=== PATIENT | male | born 1955 | race Caucasian/White ===

== ENCOUNTER 2016-05-12 13:02 | Inpatient (IN) | payer OTHER ==
[2007-03-11] MEDS: Dextrose 5%/0.45% NS 1,000 ML IV SCH (17:00)
[2016-05-09 12:06] VITALS: BMI 30.9
[2016-05-12] MEDS ORDERED: Propofol 10 mg/ml Inj (20 ML) ONE (14:52)
[2016-05-12] MEDS: cefTRIAXone IV 1 gm in Dextros 50 ML IVPB ONE ×2 (15:00→15:20)
[2016-05-12] MEDS: HYDROmorphone 0.5 mg/0.5 ml ISec IVP PRN ×4 (15:53→19:07)
[2016-05-12] MEDS ORDERED: Oxycodone/Acetaminophen 5/325 mg Tab PO PRN (16:24)
[2016-05-12] MEDS: Dextrose 5%/0.45% NS 1,000 ML IV SCH ×2 (16:30→17:00)
[2016-05-12] MEDS ORDERED: Gentamicin 80 mg in 0.9% NS 100 ML IVPB ONE (16:33)
[2016-05-12] MEDS: Gentamicin 80 mg in 0.9% NS 100 ML IVPB SCH (16:35)
[2016-05-12] MEDS ORDERED: HYDROmorphone 0.5 mg/0.5 ml ISec ONE (19:10)
[2016-05-12] MEDS: (Lantus) Insulin Glargine, Recombinant SC SCH (22:10)
[2016-05-13] MEDS: Multiple Vitamins Tab PO SCH (09:27)
[2016-05-13] MEDS: GlipiZIDE 10 mg SR Tab PO SCH ×2 (09:27→18:24)
[2016-05-13] MEDS: Dextrose 5%/0.45% NS 1,000 ML IV SCH ×2 (09:37→12:30)
[2016-05-13] MEDS ORDERED: METFORMIN HCL PO SCH (10:00)
[2016-05-13] MEDS ORDERED: Pneumococcal 23-Valent Vaccine IM ONE (10:00)
[2016-05-13] MEDS ORDERED: SAXAGLIPTIN HCL PO SCH (10:00)
[2016-05-13] MEDS: Lidocaine 2% Jelly (5 ml) TOP SCH ×3 (10:29→18:24)
[2016-05-13 15:35] VITALS: RESP 20
[2016-05-13] MEDS: Gentamicin 80 mg in 0.9% NS 100 ML IVPB SCH (16:43)
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
[2016-05-13] MEDS: (Lantus) Insulin Glargine, Recombinant SC SCH (21:58)
[2016-05-13] MEDS ORDERED: Magnesium Hydroxide Susp 30 ml UD PO ONE (22:12)
[2016-05-14] MEDS ORDERED: Magnesium Hydroxide Susp 30 ml UD PO ONE (07:53)
[2016-05-14] MEDS: Multiple Vitamins Tab PO SCH (09:10)
[2016-05-14] MEDS: GlipiZIDE 10 mg SR Tab PO SCH ×2 (09:10→17:16)
[2016-05-14] MEDS: Lidocaine 2% Jelly (5 ml) TOP SCH ×3 (10:00→18:30)
[2016-05-14] MEDS ORDERED: Magnesium Hydroxide Susp 30 ml UD PO STA (10:18)
[2016-05-14] MEDS: Dextrose 5%/0.45% NS 1,000 ML IV SCH (10:32)
[2016-05-14] MEDS: Gentamicin 80 mg in 0.9% NS 100 ML IVPB SCH (15:35)
[2016-05-14] MEDS: (Lantus) Insulin Glargine, Recombinant SC SCH (21:46)
[2016-05-15] MEDS: GlipiZIDE 10 mg SR Tab PO SCH ×2 (09:19→17:02)
[2016-05-15] MEDS: Multiple Vitamins Tab PO SCH (09:19)
[2016-05-15] MEDS: Lidocaine 2% Jelly (5 ml) TOP SCH ×3 (10:00→17:12)
[2016-05-15 15:54] VITALS: BP 114/73; PULSE 82; TEMP 98.2; O2SAT 97
[2016-05-15] MEDS: Gentamicin 80 mg in 0.9% NS 100 ML IVPB SCH (16:49)
[2016-05-19] MEDS ORDERED: Ergocalciferol 50,000 Intl Units Cap PO SCH (10:00)
--- NOTE | 2016-07-01 06:47 | DS ---
See the operative report. See the admission note. The patient was admitted for a PVP Green Light la ser TURP. At this time, he is being discharged home, so the diagnosis is retention, voiding dysfunction, hematu neal and the patient is discharged home in stable condition with outpatient plan for followup. The patient tolerated procedure well and his postoperative course was uncomplicated just a little del ayed in discharge home until he was more comfortable with ambulation, etc. Overall, the patient tolerated the procedure well. No transfusions were required. In this final analysis, the patient is discharged home in stable condition with outpatient followup. Ralf Chairez MD cc: [id number] TT: 07/01/2016 06:47:26 jn
--- NOTE | 2016-07-01 08:26 | HP ---
REASON FOR ADMISSION: Treatment of urinary retention. Voiding dysfunction. A very pleasant gentleman whom we have discussed options with; see many previous notes in the chart. He has voiding dysfunction, decreased flow of stream. We discussed no treatment, we discussed observ ation, we discussed medical therapy. We discussed microwave therapy. We discussed what he is here f or today, which is PVP GreenLight laser. We discussed Rezum. We discussed UroLift. We discussed se cond opinions. After discussing all these different options, the patient is here today for a PVP Gre enLight laser TURP. The patient has irritative and obstructive complaints, decrease of stream, and nocturia. He currently has no gross hematuria. PAST MEDICAL AND SURGICAL HISTORY: As listed. The patient has also had medical clearance in prepara tion for today. REVIEW OF SYSTEMS: Listed above, otherwise noncontributory. No weight loss, chest pain, shortness o f breath. On physical exam, well-nourished male in no apparent distress. VITAL SIGNS: Within normal limits; included in the chart. LUNGS: Clear. HEART: Normal S1. ABDOMEN: Overall soft, nontender. No flank mass appreciated. Normal phallus. There are no testicular masses. RECTAL: A 30 g prostate, soft and smooth. LABORATORIES: See chart. PSA noted. DIAGNOSES: Urinary retention, voiding dysfunction, decreased flow of stream, incomplete bladder empt shadia. A very pleasant gentleman who has both irritative and obstructive complaints. We discussed options. The patient is not happy with just his medical therapy. After discussing all the options, risks, be nefits, treatments, and specifically we discussed erectile dysfunction. We discussed urinary inconti nence. We discussed ejaculate dysfunction. I explained to the patient that one of our biggest la rns is the expectation. We expect him to have retrograde ejaculation. This would not be a complication, but an expectation. Expecting about 30-40%. The expectation is that if it does occur, it will be permanent. After discussing the options, risks, benefits, and treatment alternatives, the plan as follows: We a re going to proceed with a PVP GreenLight laser TURP. I have made arrangements for the company to be here today. We have made arrangements for medical clearance. Risks, benefits discussed at length. The plan is as follows: The patient, as an admission to the [facility]. For a PVP GreenLight laser TURP. Antibiotic prophylaxis will be provided. Further plans will follow . Ralf Chairez MD cc: [id number] TT: 07/01/2016 08:25:44 jn
--- NOTE | 2016-07-01 09:11 | OP ---
PROCEDURE DATE: 05/12/2016 PREOPERATIVE DIAGNOSES: Voiding dysfunction, urinary retention, decreased flow of stream, nocturia, incomplete bladder emptying, enlarged prostate. POSTOPERATIVE DIAGNOSES: Voiding dysfunction, urinary retention, decreased flow of stream, nocturia, incomplete bladder emptying, enlarged prostate. PROCEDURE: Photoselective vaporization of the prostate GreenLight laser transurethral resection of t he prostate. SURGEON: Ralf Chairez MD COMPLICATIONS: There were no complications. BLOOD LOSS: Less than 25 mL. INDICATIONS: See the history and physical for further details. A very pleasant gentleman. We discu ssed options. We discussed risks and benefits and details in great length. Specifically, we discusse d erectile and ejaculatory dysfunction and the expectation for retrograde ejaculation and no fluid. The patient is aware from his medical therapy. After discussing all options, we discussed no treatments, no surgeries; we discussed open surgery, we discussed GreenLight laser, we discussed resume, we discussed lift, we discussed microwave. We disc ussed the various options at length. After discussing those options, the patient is here now. FINDINGS: Anterior urethra is normal, no strictures. From the veru on in, it was visually occlusive . At the termination of the procedure, the patient is wide open. Ureteral orifices are within normal limits. Bladder was within normal limits. No bladder tumors or stones are seen. DESCRIPTION OF PROCEDURE: After obtaining informed consent, the patient placed on table, routine mon itors placed, timeouts were confirmed. The patient was brought to the OR, timeouts, antibiotic prophylaxis. The patient was positioned in a lithotomy position. Venodyne boots in place, etc. We begin the procedure in the following fashion. We introduced the scope with a visual obturator. A nterior urethra is normal, no stricture. From the veru on it, it is visually occlusive about 3 cm in length. The prostate volume is about 30-40 mL. We identified our landmarks, the veru, the ureteral orifices, bladder neck, etc. We now switch over to the working channel. We used a continuous flow persistent. We started at 80 w atts along the bladder neck at 5 and 7. Once we opened this, we moved fashion quickly. Meticulously , carefully, slowly and ____ at the same time, just with a lua motion across in the usual fashion. Once we are away from the bladder neck, we turn our energy up to about 120 and we work between 5 and 1 and 7 and 11, and will work our way back. We keep checking our landmarks to make sure we are away from the bladder neck, away from the veru till we are wide open. We now turn our attention anteriorly and between 11 and 1. Overall, at this point, there is essentially no bleeding. Any bleeding we saw, we used coagulation, but the patient is wide open. At this point, we inserted a Schuster catheter via the urethra. I do want to mention upon removal of th e scope and just watching the patient's urine stream, it is nice and strong. We put a little tractio n on the balloon. The patient tolerated the procedure without complication. He was brought to the recovery room in sta ble condition. Ralf Chairez MD cc: [id number] TT: 07/01/2016 08:46:40 ri
== END 2016-05-15 18:20 | disposition home or self-care (01) | DRG 336 ==
LOC: C.SDS 13:02 → C.9S 15:57 → C.6T 19:34
PROVIDERS: ADMIT Urology; ATTEND Urology
PROC: 0VT08ZZ Resection of Prostate, Via Natural or Artificial Opening Endoscopic (ICD-10-PCS; principal; 2016-05-12 15:00)
DX: N40.1 Benign prostatic hyperplasia with lower urinary tract symptoms (principal); R33.8 Other retention of urine; R31.9 Hematuria, unspecified; E11.22 Type 2 diabetes mellitus with diabetic chronic kidney disease; I12.9 Hypertensive chronic kidney disease with stage 1 through stage 4 chronic kidney disease, or unspecified chronic kidney disease; N18.9 Chronic kidney disease, unspecified; M54.5 Low back pain; K21.9 Gastro-esophageal reflux disease without esophagitis; F12.10 Cannabis abuse, uncomplicated; E78.2 Mixed hyperlipidemia; F17.210 Nicotine dependence, cigarettes, uncomplicated; Z79.4 Long term (current) use of insulin; Z87.442 Personal history of urinary calculi

== ENCOUNTER 2017-01-31 09:38 | Inpatient (IN) | payer OTHER ==
[2017-01-31 09:51] VITALS: BMI 29.0
[2017-01-31 10:40] LABS: BASO # 0.1 K/uL (0.0-0.2); BASO % 1.2 % (0.0-2.0); EOS # 0.1 K/uL (0.0-0.7); RED CELL DISTRIBUTION WIDTH 18.7 % (11.5-14.5)
--- NOTE | 2017-01-31 10:42 | RAD ---
PROCEDURE: CHEST RADIOGRAPH, 1 VIEW HISTORY: GI Bleeding COMPARISON: None available. FINDINGS: LUNGS: No consolidation. Possible small sub cm mid lung zone granulomas present. PLEURA: No pneumothorax or pleural fluid seen. CARDIOVASCULAR: Normal. OSSEOUS STRUCTURES: No significant abnormalities. VISUALIZED UPPER ABDOMEN: Normal. OTHER FINDINGS: None. IMPRESSION: No consolidative infiltrate or atelectasis. Tiny granulomatous changes-not excluded.
[2017-01-31 10:45] LABS: HEMATOCRIT 20.6 % (35.0-51.0); INR 1.1; MEAN CORPUSCULAR HEMOGLOBIN 18.3 pg (27.0-31.0); MEAN CORPUSCULAR HGB CONC 30.1 g/dL (33.0-37.0); MEAN PLATELET VOLUME 7.5 fL (7.2-11.7)
[2017-01-31 10:48] LABS: EOS % 1.8 % (0.0-4.0); LYMPH % 22.8 % (20.0-40.0); MEAN CELL VOLUME 60.9 fL (80.0-94.0); MONO % 11.2 % (0.0-10.0); WHITE BLOOD COUNT 7.6 K/uL (4.8-10.8)
[2017-01-31 10:49] LABS: LYMPH # 1.7 K/uL (1.0-4.3); MONO # 0.9 K/uL (0.0-0.8); NRBC % 0.1 % (0.0-2.0)
--- NOTE | 2017-01-31 11:11 | C.PDOC ---
History Of Present Illness 61 year old male presents to the ED for evaluation of hemoglobin levels that were at 6.2 during recent blood work. Patient states his PMD is Dr. Donato, he referred patient to ED regarding concern over dark stool occurring for one month. Patient believes he has a history of ulcers which are followed by his GI DrViviana Powers. He reports shortness of breath but denies fever, nausea, or vomiting. Time Seen by Provider: 01/31/17 10:09 Chief Complaint (Nursing): Shortness Of Breath History Per: Patient History/Exam Limitations: no limitations Onset/Duration Of Symptoms: Persistent (1 month ) Current Symptoms Are (Timing): Still Present Exacerbating Factor(s): denies: Exertion, Coughing Current Respiratory Medications: None Associated Symptoms: denies: Fever, Chills, Chest Pain, Bloody Cough, Productive Cough Reports Recently: Treated By A Physician Recent travel outside of the [place]: No Past Medical History Reviewed: Historical Data, Nursing Documentation, Vital Signs Vital Signs: Last Vital Signs Temp 98.5 F 01/31/17 12:29 Pulse 82 01/31/17 12:29 Resp 16 01/31/17 12:29 BP 122/65 01/31/17 12:29 Pulse Ox 100 01/31/17 12:29 - Medical History PMH: COPD, Diabetes, HTN, Hypercholesterolemia, Kidney Stones, Chronic Kidney Disease Surgical History: Appendectomy, Tonsillectomy - [facility] Procedures RESECTION OF PROSTATE, ENDO (05/12/16) Family History: States: Unknown Family Hx - Social History Hx Tobacco Use: No Hx Alcohol Use: No Hx Substance Use: Yes (Marijuana) - Immunization History Hx Tetanus Toxoid Vaccination: Yes Hx Influenza Vaccination: Yes Hx Pneumococcal Vaccination: No Review Of Systems Constitutional: Negative for: Fever, Chills Cardiovascular: Negative for: Chest Pain, Palpitations Respiratory: Positive for: Shortness of Breath. Negative for: Cough Gastrointestinal: Negative for: Nausea, Vomiting, Abdominal Pain, Diarrhea Physical Exam - Physical Exam Appears: Non-toxic, No Acute Distress Skin: Warm, Dry, No Rash Head: Atraumatic, Normacephalic, No Tenderness Eye(s): bilateral: PERRL, EOMI, Conjunctiva Pale Oral Mucosa: Moist Neck: Supple Chest: Symmetrical, No Deformity Cardiovascular: Rhythm Regular, No Murmur Respiratory: No Rales, No Rhonchi, No Wheezing, Other (clear to auscultation bilaterally ) Gastrointestinal/Abdominal: Soft, No Tenderness, No Distention, No Guarding, No Rebound Extremity: Normal ROM, No Tenderness Neurological/Psych: Oriented x3 ED Course And Treatment - Laboratory Results Result Diagrams: 01/31/17 10:30 01/31/17 10:30 ECG: Interpreted By Me, Viewed By Me O2 Sat by Pulse Oximetry: 98 (RA) Pulse Ox Interpretation: Normal - Radiology CXR: Viewed By Me, Read By Radiologist Progress Note: Blood work, EKG, CXR, and labs were ordered. Patient was given Protonix. Discussed case with Dr. Donato who agrees with plan to admit patient to med surg for symptomatic anemia. - Physician Consult Information Time Consulting Physician Contacted: 11:40 Physician Contacted: Afsaneh Powers Disposition Discussed With Dr.: Barbara Donato Doctor Will See Patient In The: Hospital Counseled Patient/Family Regarding: Studies Performed, Diagnosis - Disposition Disposition: HOSPITALIZED Disposition Time: 12:08 Condition: FAIR - Clinical Impression Clinical Impression: Symptomatic anemia - Scribe Statement The provider has reviewed the documentation as recorded by the Scribe Yasemin Rick All medical record entries made by the Scribe were at my direction and personally dictated by me. I have reviewed the chart and agree that the record accurately reflects my personal performance of the history, physical exam, medical decision making, and the department course for this patient. I have also personally directed, reviewed, and agree with the discharge instructions and disposition.
[2017-01-31 11:59] LABS: ALB/GLOB RATIO 1.5 (1.0-2.1); ALKALINE PHOSPHATASE 82 U/L (38-126); ALT/SGPT 38 U/L (21-72); AST/SGOT 30 U/L (17-59); BILIRUBIN,TOTAL 0.4 mg/dL (0.2-1.3); BLOOD UREA NITROGEN 15 mg/dL (9-20); CALCIUM 8.7 mg/dl (8.6-10.4); CARBON DIOXIDE 20 mmol/L (22-30); CHLORIDE 99 mmol/L (98-107); GFR AFRICAN-AMERICAN > 60; GLUCOSE,RANDOM 265 mg/dL (75-110); POTASSIUM 4.6 mmol/L (3.6-5.2); SODIUM 131 mmol/L (132-148); TOTAL PROTEIN 6.7 g/dL (6.3-8.3)
[2017-01-31] MEDS ORDERED: Oxycodone/Acetaminophen 5/325 mg Tab PO PRN (12:30)
[2017-01-31] MEDS ORDERED: Ergocalciferol 50,000 Intl Units Cap PO SCH (12:30)
[2017-01-31] MEDS ORDERED: HYDROmorphone 1 mg/ml ISec IVP PRN (12:30)
[2017-01-31] MEDS ORDERED: COLACE 100 MG PO SCH (12:30)
--- NOTE | 2017-01-31 12:37 | CP.PCM.HP ---
History of Present Illness - History of Present Illness History of Present Illness: 61 years old with history of diabetes hypertension and mixed lipidemia, in addition to chronic obstructive urinary disease, still a smoker. The recent stress test was negative for ischemia with normal ejection fraction, he had palpitation with shortness of breath his hemoglobin was 6.2 no hematochezia no melanoma would be admitted for transfusion and initial workup. Present on Admission - Present on Admission Any Indicators Present on Admission: No Review of Systems - Review of Systems Systems not reviewed;Unavailable: Respiratory Distress - Constitutional Constitutional: Anorexia, Weakness - EENT Eyes: absent: Discharge Ears: absent: Ear Discharge, Dizziness Nose/Mouth/Throat: absent: Epistaxis - Cardiovascular Cardiovascular: Dyspnea. absent: Acrocyanosis, Chest Pain, Diaphoresis, Palpitations, Syncope - Respiratory Respiratory: Dyspnea. absent: Cough, Hemoptysis - Gastrointestinal Gastrointestinal: absent: Abdominal Pain, Melena, Vomiting - Genitourinary Genitourinary: absent: Change in Urinary Stream Past Patient History - Past Medical History & Family History Past Medical History?: Yes - Past Social History Smoking Status: Heavy Smoker > 10 Cigarettes Daily - CARDIAC Hx Hypercholesterolemia: Yes Hx Hypertension: Yes - PULMONARY Hx Chronic Obstructive Pulmonary Disease (COPD): Yes - NEUROLOGICAL Hx Neurological Disorder: No - HEENT Hx HEENT Problems: No - RENAL Hx Chronic Kidney Disease: Yes Hx Kidney Stones: Yes - ENDOCRINE/METABOLIC Hx Endocrine Disorders: Yes Hx Diabetes Mellitus Type 2: Yes - HEMATOLOGICAL/ONCOLOGICAL Hx Blood Disorders: No - INTEGUMENTARY Hx Dermatological Problems: No - MUSCULOSKELETAL/RHEUMATOLOGICAL Hx Falls: No - GASTROINTESTINAL Hx Gastrointestinal Disorders: Yes Hx Fatty Liver Disease: Yes Hx Gastroesophageal Reflux: Yes - GENITOURINARY/GYNECOLOGICAL Hx Genitourinary Disorders: Yes Hx Prostate Problems: Yes (BPH) - PSYCHIATRIC Hx Substance Use: Yes (Marijuana) - SURGICAL HISTORY Hx Appendectomy: Yes Hx Tonsillectomy: Yes - ANESTHESIA Hx Anesthesia: Yes Hx Anesthesia Reactions: No Hx Malignant Hyperthermia: No Meds Allergies/Adverse Reactions: Allergies Allergy/AdvReac Type Severity Reaction Status Date / Time No Known Allergies Allergy Verified 01/31/17 09:49 Physical Exam - Constitutional Appears: Non-toxic - Head Exam Head Exam: ATRAUMATIC - Eye Exam Eye Exam: EOMI - ENT Exam ENT Exam: Mucous Membranes Moist - Neck Exam Neck exam: Negative for: Lymphadenopathy, Thyromegaly - Respiratory Exam Respiratory Exam: Prolonged Expiratory Phase. absent: Rales, Rhonchi, Wheezes - Cardiovascular Exam Cardiovascular Exam: REGULAR RHYTHM, Systolic Murmur - GI/Abdominal Exam GI & Abdominal Exam: Normal Bowel Sounds. absent: Organomegaly - Rectal Exam Rectal Exam: Deferred - Extremities Exam Extremities exam: Positive for: normal capillary refill. Negative for: calf tenderness - Neurological Exam Neurological exam: Alert, Oriented x3 - Psychiatric Exam Psychiatric exam: Depressed - Skin Skin Exam: Dry Results - Vital Signs Recent Vital Signs: Last Vital Signs Temp 98.5 F 01/31/17 12:29 Pulse 82 01/31/17 12:29 Resp 16 01/31/17 12:29 BP 122/65 01/31/17 12:29 Pulse Ox 100 01/31/17 12:29 - Labs Result Diagrams: 01/31/17 10:30 01/31/17 10:30 Labs: Laboratory Results - last 24 hr 01/31/17 01/31/17 01/31/17 10:17 10:30 10:30 WBC 7.6 RBC 3.33 L Hgb 6.2 L* D Hct 20.6 L MCV 60.9 L D MCH 18.3 L MCHC 30.1 L RDW 18.7 H Plt Count 701 H D MPV 7.5 Neut % (Auto) 63.0 Lymph % (Auto) 22.8 [place] % (Auto) 11.2 H Eos % (Auto) 1.8 Baso % (Auto) 1.2 Neut # 4.8 Lymph # 1.7 [place] # 0.9 H Eos # 0.1 Baso # 0.1 Differential Comment PT 12.1 INR 1.1 APTT 27 Sodium Potassium Chloride Carbon Dioxide Anion Gap BUN Creatinine Est GFR ( Amer) Est GFR (Non-Af Amer) POC Glucose (mg/dL) 307 H Random Glucose Calcium Total Bilirubin AST ALT Alkaline Phosphatase Troponin I Total Protein Albumin Globulin Albumin/Globulin Ratio Blood Type Blood Type Confirm Antibody Screen 01/31/17 01/31/17 10:30 10:30 WBC RBC Hgb Hct MCV MCH MCHC RDW Plt Count MPV Neut % (Auto) Lymph % (Auto) [place] % (Auto) Eos % (Auto) Baso % (Auto) Neut # Lymph # [place] # Eos # Baso # Differential Comment PT INR APTT Sodium 131 L Potassium 4.6 Chloride 99 Carbon Dioxide 20 L Anion Gap 17 BUN 15 Creatinine 0.9 Est GFR ( Amer) > 60 Est GFR (Non-Af Amer) > 60 POC Glucose (mg/dL) Random Glucose 265 H Calcium 8.7 Total Bilirubin 0.4 AST 30 ALT 38 Alkaline Phosphatase 82 Troponin I < 0.0120 Total Protein 6.7 Albumin 4.1 Globulin 2.6 Albumin/Globulin Ratio 1.5 Blood Type B POSITIVE Blood Type Confirm B POSITIVE Antibody Screen Negative Assessment & Plan (1) Symptomatic anemia Status: Acute Comment: transfusion, w/u as outpt (2) Diabetes 1.5, managed as type 2 Status: Chronic (3) Hypertension Status: Chronic Decision To Admit - Pt Status Changed To: Hospital Disposition Of: Observation - . Bed Request Type: Regular
[2017-01-31] MEDS ORDERED: ALOGLIPTIN PO SCH (18:00)
[2017-01-31] MEDS ORDERED: METFORMIN PO SCH (18:00)
[2017-01-31] MEDS: GlipiZIDE 10 mg SR Tab PO SCH (18:12)
[2017-01-31] MEDS: Sodium Chloride 0.9% 1,000 ML IV SCH (18:13)
[2017-01-31 20:06] LABS: CARCINOEMBRYONIC ANTIGEN 3.9 ng/mL (0-3.0); PROSTATE SPECIFIC ANTIGEN 0.366 ng/mL (0.00-4.0)
[2017-01-31 20:10] LABS: CA 19-9 31.6 U/mL (0-37)
[2017-01-31] MEDS: INSULIN GLARGINE HUM REC ANLOG 12 UNIT SC SCH (22:02)
[2017-02-01] MEDS: Sodium Chloride 0.9% 1,000 ML IV SCH ×2 (06:22→21:58)
[2017-02-01] MEDS ORDERED: Propofol 10 mg/ml Inj (20 ML) ONE (08:00)
[2017-02-01 08:01] LABS: BASO # 0.1 K/uL (0.0-0.2); BASO % 1.4 % (0.0-2.0); EOS # 0.2 K/uL (0.0-0.7); EOS % 2.6 % (0.0-4.0); HEMATOCRIT 26.9 % (35.0-51.0); LYMPH % 22.6 % (20.0-40.0); MEAN CORPUSCULAR HEMOGLOBIN 21.3 pg (27.0-31.0); MEAN CORPUSCULAR HGB CONC 31.8 g/dL (33.0-37.0); MEAN PLATELET VOLUME 7.6 fL (7.2-11.7); MONO % 11.4 % (0.0-10.0); NRBC % 0.1 % (0.0-2.0); RED CELL DISTRIBUTION WIDTH 25.6 % (11.5-14.5); WHITE BLOOD COUNT 8.9 K/uL (4.8-10.8)
[2017-02-01] MEDS ORDERED: Lidocaine Hydrochloride 10 ML INJ ONE (08:15)
[2017-02-01] MEDS ORDERED: Phenylephrine 10 mg/ml Inj ONE (08:15)
[2017-02-01] MEDS ORDERED: Peg-Electrolyte Oral Soln 4L (Golytely) PO ONE (11:00)
[2017-02-01] MEDS: GlipiZIDE 10 mg SR Tab PO SCH ×2 (11:03→17:59)
[2017-02-01] MEDS: METFORMIN PO SCH ×2 (11:09→18:10)
[2017-02-01] MEDS: ALOGLIPTIN PO SCH ×2 (11:09→18:10)
[2017-02-01] MEDS ORDERED: Bisacodyl 5mg EC Tab PO ONE ×2 (17:00→22:27)
--- NOTE | 2017-02-01 17:59 | CP.PCM.PN ---
Subjective - Date & Time of Evaluation Date of Evaluation: 02/01/17 Time of Evaluation: 12:00 - Subjective Subjective: had EGD did well, no bleed for colonoscopy, Hg up to 8.5 Objective - Vital Signs/Intake and Output Vital Signs (last 24 hours): Temp Pulse Resp BP Pulse Ox 98.4 F 76 20 119/71 99 02/01/17 15:00 02/01/17 15:00 02/01/17 15:00 02/01/17 15:00 02/01/17 15:00 Intake and Output: 02/01/17 02/01/17 06:59 18:59 Intake Total 1155 1230 Output Total 600 Balance 555 1230 - Medications Medications: Current Medications Acetaminophen (Tylenol 325mg Tab) 650 mg PO Q6 PRN PRN Reason: Fever >100.4 F Last Admin: 01/31/17 18:16 Dose: 650 mg Docusate Sodium (Colace) 100 mg PO BID [facility] Last Admin: 02/01/17 11:02 Dose: 100 mg Ergocalciferol (Drisdol 50,000 Intl Units Cap) 1 cap PO QWK [facility] Last Admin: 01/31/17 18:11 Dose: 1 cap Gabapentin (Neurontin) 100 mg PO DAILY [facility] Last Admin: 02/01/17 11:02 Dose: 100 mg Glipizide (Glucotrol Xl) 10 mg PO BID [facility] Last Admin: 02/01/17 11:03 Dose: 10 mg Home Med (Insulin Glargine,Hum.Rec.Anlog [Jade Lacy]) 12 unit SC HS [facility] Last Admin: 01/31/17 22:02 Dose: Not Given Home Med (Saxagliptin Hcl/Metformin Hcl [Kombiglyze Xr 2.5-1,000 Mg Tab]) 1 tab PO BID [facility] Last Admin: 02/01/17 11:09 Dose: 1 tab Hydromorphone HCl (Dilaudid) 1 mg IVP Q6H PRN PRN Reason: Pain, severe (8-10) Last Admin: 01/31/17 18:37 Dose: 1 mg Sodium Chloride (Sodium Chloride 0.9%) 1,000 mls @ 60 mls/hr IV .[id number] [facility] Last Admin: 02/01/17 06:22 Dose: Not Given Lisinopril (Zestril) 10 mg PO DAILY [facility] Last Admin: 02/01/17 11:03 Dose: 10 mg Metoclopramide HCl (Reglan) 5 mg IVP Q6 [facility] Last Admin: 02/01/17 12:09 Dose: 5 mg Ondansetron HCl (Zofran Inj) 4 mg IVP Q6 PRN PRN Reason: Nausea/Vomiting Oxycodone/Acetaminophen (Percocet 5/325 Mg Tab) 1 tab PO Q4 PRN PRN Reason: Pain, moderate (4-7) Stop: 02/03/17 12:31 Pneumococcal Polyvalent Vaccine (Pneumovax 23 Vaccine) 0.5 ml IM .ONCE ONE Stop: 02/02/17 10:01 Rosuvastatin Calcium (Crestor) 10 mg PO HS [facility] Last Admin: 01/31/17 22:01 Dose: 10 mg - Labs Labs: 02/01/17 07:49 01/31/17 10:30 PT 12.1 SECONDS (9.7-12.2) 01/31/17 10:30 INR 1.1 01/31/17 10:30 APTT 27 SECONDS (21-34) 01/31/17 10:30 - Constitutional Appears: Non-toxic - Head Exam Head Exam: ATRAUMATIC - Eye Exam Eye Exam: EOMI - ENT Exam ENT Exam: Mucous Membranes Moist - Neck Exam Neck Exam: absent: Lymphadenopathy, Thyromegaly - Respiratory Exam Respiratory Exam: Clear to Ausculation Bilateral. absent: Rales - Cardiovascular Exam Cardiovascular Exam: REGULAR RHYTHM, Murmur - GI/Abdominal Exam GI & Abdominal Exam: Normal Bowel Sounds. absent: Organomegaly - Rectal Exam Rectal Exam: Deferred - Extremities Exam Extremities Exam: Normal Capillary Refill. absent: Calf Tenderness - Neurological Exam Neurological Exam: Alert, Oriented x3 - Psychiatric Exam Psychiatric exam: Normal Mood - Skin Skin Exam: Dry Assessment and Plan (1) Symptomatic anemia Status: Acute (2) Diabetes 1.5, managed as type 2 Status: Chronic (3) Hypertension Status: Chronic
[2017-02-01] MEDS: INSULIN GLARGINE HUM REC ANLOG 12 UNIT SC SCH (21:56)
--- NOTE | 2017-02-02 07:28 | CON ---
DATE: HISTORY OF PRESENT ILLNESS: A 61-year-old male admitted to the hospital today complaining of shortness of breath, weakness, diaphoresis for the last month. The patient had workup done as well as the patient had pulmonary function test and found to have COPD. Blood work revealed a hemoglobin of 6, advised admission. The patient is a smoker, stopped 5 weeks ago. PHYSICAL EXAMINATION: GENERAL: The patient is awake, alert, oriented. VITAL SIGNS: Temperature 98, pulse 90. HEENT: Within normal limits. NECK: Supple. CHEST: Symmetrical. HEART: Regular. ABDOMEN: Soft. EXTREMITIES: No edema. ASSESSMENT: The patient was found to have symptomatic anemia. The patient needs bed rest, supportive care, bronchodilators, workup of anemia. Further workup according to gastrointestinal workup. Harman Childress MD
--- NOTE | 2017-02-02 08:41 | CARD ---
APPROVED REPORT EKG Measurement Heart [id number] NH [id number] [id number] <Conclusion> Sinus rhythm with premature atrial complexes Otherwise normal ECG
[2017-02-02 08:51] LABS: HEMATOCRIT 29.9 % (35.0-51.0); MEAN CELL VOLUME 66.8 fL (80.0-94.0); MEAN CORPUSCULAR HEMOGLOBIN 20.8 pg (27.0-31.0); MEAN CORPUSCULAR HGB CONC 31.1 g/dL (33.0-37.0); MEAN PLATELET VOLUME 7.5 fL (7.2-11.7); RED CELL DISTRIBUTION WIDTH 25.5 % (11.5-14.5); WHITE BLOOD COUNT 8.8 K/uL (4.8-10.8)
[2017-02-02 09:09] LABS: BLOOD UREA NITROGEN 10 mg/dL (9-20); CALCIUM 8.8 mg/dl (8.6-10.4); CARBON DIOXIDE 23 mmol/L (22-30); CHLORIDE 101 mmol/L (98-107); GFR AFRICAN-AMERICAN > 60; GLUCOSE,RANDOM 126 mg/dL (75-110); POTASSIUM 4.2 mmol/L (3.6-5.2); SODIUM 134 mmol/L (132-148)
[2017-02-02 09:27] LABS: EOS # 0.3 K/uL (0.0-0.7); LYMPH # 2.8 K/uL (1.0-4.3); MONO # 0.8 K/uL (0.0-0.8)
[2017-02-02] MEDS ORDERED: Influenza Vaccine 60 mcg/0.5 mL SYR (4YR UP) IM ONE (10:00)
[2017-02-02] MEDS ORDERED: Pneumococcal 23-Valent Vaccine IM ONE (10:00)
[2017-02-02] MEDS: GlipiZIDE 10 mg SR Tab PO SCH (11:17)
[2017-02-02] MEDS: ALOGLIPTIN PO SCH (11:18)
[2017-02-02] MEDS: METFORMIN PO SCH (11:18)
[2017-02-02] MEDS ORDERED: Propofol 10 mg/ml Inj (20 ML) ONE (11:24)
[2017-02-02 11:26] VITALS: TEMP 97.8
[2017-02-02 11:36] VITALS: O2SAT 100
[2017-02-02 12:28] VITALS: BP 116/60; PULSE 76; RESP 12
--- NOTE | 2017-02-02 16:19 | CP.PCM.DIS ---
Provider - Provider Date of Admission: 01/31/17 12:05 Attending physician: Barbara Donato MD Time Spent in preparation of Discharge (in minutes): 20 Diagnosis - Discharge Diagnosis (1) Symptomatic anemia Status: Acute (2) Diabetes 1.5, managed as type 2 Status: Chronic (3) Hypertension Status: Chronic Hospital Course - Lab Results Lab Results: Most Recent Lab Values WBC 8.8 K/uL (4.8-10.8) 02/02/17 08:38 RBC 4.47 Mil/uL (4.40-5.90) 02/02/17 08:38 Hgb 9.3 g/dL (12.0-18.0) L 02/02/17 08:38 Hct 29.9 % (35.0-51.0) L 02/02/17 08:38 MCV 66.8 fL (80.0-94.0) L 02/02/17 08:38 MCH 20.8 pg (27.0-31.0) L 02/02/17 08:38 MCHC 31.1 g/dL (33.0-37.0) L 02/02/17 08:38 RDW 25.5 % (11.5-14.5) H 02/02/17 08:38 Plt Count 643 K/uL (130-400) H 02/02/17 08:38 MPV 7.5 fL (7.2-11.7) 02/02/17 08:38 Neut % (Auto) 56.0 % (50.0-75.0) 02/02/17 08:38 Lymph % (Auto) 32.0 % (20.0-40.0) 02/02/17 08:38 [place] % (Auto) 9.0 % (0.0-10.0) 02/02/17 08:38 Eos % (Auto) 3.0 % (0.0-4.0) 02/02/17 08:38 Baso % (Auto) 0.0 % (0.0-2.0) 02/02/17 08:38 Neut # 4.9 K/uL (1.8-7.0) 02/02/17 08:38 Lymph # 2.8 K/uL (1.0-4.3) 02/02/17 08:38 [place] # 0.8 K/uL (0.0-0.8) 02/02/17 08:38 Eos # 0.3 K/uL (0.0-0.7) 02/02/17 08:38 Baso # 0.0 K/uL (0.0-0.2) 02/02/17 08:38 Differential Comment 01/31/17 10:30 PT 12.1 SECONDS (9.7-12.2) 01/31/17 10:30 INR 1.1 01/31/17 10:30 APTT 27 SECONDS (21-34) 01/31/17 10:30 Sodium 134 mmol/L (132-148) 02/02/17 08:38 Potassium 4.2 mmol/L (3.6-5.2) 02/02/17 08:38 Chloride 101 mmol/L (98-107) 02/02/17 08:38 Carbon Dioxide 23 mmol/L (22-30) 02/02/17 08:38 Anion Gap 15 (10-20) 02/02/17 08:38 BUN 10 mg/dL (9-20) 02/02/17 08:38 Creatinine 0.9 mg/dL (0.8-1.5) 02/02/17 08:38 Est GFR ( Amer) > 60 02/02/17 08:38 Est GFR (Non-Af Amer) > 60 02/02/17 08:38 POC Glucose (mg/dL) 146 mg/dL (65-110) H 02/02/17 10:15 Random Glucose 126 mg/dL (75-110) H 02/02/17 08:38 Calcium 8.8 mg/dl (8.6-10.4) 02/02/17 08:38 Total Bilirubin 0.4 mg/dL (0.2-1.3) 01/31/17 10:30 AST 30 U/L (17-59) 01/31/17 10:30 ALT 38 U/L (21-72) 01/31/17 10:30 Alkaline Phosphatase 82 U/L (38-126) 01/31/17 10:30 Troponin I < 0.0120 ng/mL (0.00-0.120) 01/31/17 10:30 Total Protein 6.7 g/dL (6.3-8.3) 01/31/17 10:30 Albumin 4.1 g/dL (3.5-5.0) 01/31/17 10:30 Globulin 2.6 gm/dL (2.2-3.9) 01/31/17 10:30 Albumin/Globulin Ratio 1.5 (1.0-2.1) 01/31/17 10:30 Carcinoembryonic Ag 3.9 ng/mL (0-3.0) H 01/31/17 19:21 CA 19-9 Antigen 31.6 U/mL (0-37) 01/31/17 19:21 Prostate Specific Ag 0.366 ng/mL (0.00-4.0) 01/31/17 19:21 Blood Type B POSITIVE 01/31/17 10:30 Blood Type Confirm B POSITIVE 01/31/17 10:30 Antibody Screen Negative 01/31/17 10:30 - Hospital Course Hospital Course: hx of copd, admitted with anemia, transfused, had EGD colonoscopy, f/u as outpt Discharge Exam - Head Exam Head Exam: ATRAUMATIC - Eye Exam Eye Exam: EOMI - ENT Exam ENT Exam: Mucous Membranes Moist - Neck Exam Neck exam: Full Rom - Respiratory Exam Respiratory Exam: Prolonged Expiratory Phase. absent: Rales, Rhonchi - Cardiovascular Exam Cardiovascular Exam: REGULAR RHYTHM, Systolic Murmur - GI/Abdominal Exam GI & Abdominal Exam: Normal Bowel Sounds. absent: Organomegaly - Rectal Exam Rectal Exam: Deferred - Extremities Exam Extremities exam: normal capillary refill - Neurological Exam Neurological exam: Alert, Oriented x3 - Psychiatric Exam Psychiatric exam: Normal Affect - Skin Skin Exam: Dry Discharge Plan - Follow Up Plan Condition: FAIR Disposition: HOME/ ROUTINE Instructions: Anemia (DC) Referrals: Barbara Donato MD [Staff Provider] -
== END 2017-02-02 16:44 | disposition home or self-care (01) | DRG 395 ==
LOC: C.ER 09:38 → C.9E 12:05 → C.3T 14:31
PROVIDERS: ADMIT Internal Medicine Cardiovascular Disease; ATTEND Internal Medicine Cardiovascular Disease
PROC: 30233N1 Transfusion of Nonautologous Red Blood Cells into Peripheral Vein, Percutaneous Approach (ICD-10-PCS; 2017-01-31)
PROC: 0DB68ZX Excision of Stomach, Via Natural or Artificial Opening Endoscopic, Diagnostic (ICD-10-PCS; principal; 2017-02-01 07:58)
DX: D64.9 Anemia, unspecified (principal); E11.22 Type 2 diabetes mellitus with diabetic chronic kidney disease; J44.9 Chronic obstructive pulmonary disease, unspecified; I12.9 Hypertensive chronic kidney disease with stage 1 through stage 4 chronic kidney disease, or unspecified chronic kidney disease; N18.9 Chronic kidney disease, unspecified; B96.81 Helicobacter pylori [H. pylori] as the cause of diseases classified elsewhere; K29.70 Gastritis, unspecified, without bleeding; F17.210 Nicotine dependence, cigarettes, uncomplicated; K44.9 Diaphragmatic hernia without obstruction or gangrene; E78.00 Pure hypercholesterolemia, unspecified; Z87.442 Personal history of urinary calculi; Z28.21 Immunization not carried out because of patient refusal

== ENCOUNTER 2018-02-07 09:04 | Day surgery (SDC) | payer OTHER ==
[2018-02-06 10:11] VITALS: BMI 29.8
--- NOTE | 2018-02-07 10:28 | CP.SDSHP ---
Same Day Surgery H & P - History Proposed Procedure: COLONSCOPY Pre-Op Diagnosis: SEE NOTES - Previous Medical/Surgical History Cardiac: Hypertension Endocrine/Metabolic: Diabetes, Other Neuro: Backaches Pain: 4.Moderate Pain Previous Surgical History: COLONSCOPY/POLYPS - Allergies Allergies: Allergies No Known Allergies Allergy (Verified 02/06/18 10:11) - Physical Exam General Appearance: N Vital Signs: Vital Signs 02/07/18 09:30 Temperature 98.4 F Pulse Rate 90 Respiratory 18 Rate Blood Pressure 147/73 O2 Sat by Pulse 98 Oximetry Mental Status: Alert & Oriented x3 Neuro: WNL Heart: Other Lungs: WNL GI: Other - {Optional Preform as Required} Breast: WNL Abdomen: Other Rectal: Other Integument: WNL : WNL Ortho: Other ENT: WNL - Impression Pt. Evaluated Today:Candidate for Anesthesia & Procedure: Yes - Date & Time Time: 10:29 Short Stay Discharge - Short Stay Discharge Admitting Diagnosis/Reason for Visit: PERSONAL HISTORY OF COLONIC POLYPS Disposition: HOME/ ROUTINE Referrals: Harman Childress MD [Primary Care Provider] -
[2018-02-07] MEDS ORDERED: Lactated Ringer's 500 ML IV ONE ×2 (10:29)
[2018-02-07] MEDS ORDERED: Propofol 10 mg/ml Inj (20 ML) ONE (10:33)
[2018-02-07] MEDS ORDERED: Belladonna-Phenobarbital PO ONE (10:45)
[2018-02-07 11:04] VITALS: TEMP 97.8; O2SAT 100
[2018-02-07 12:36] VITALS: BP 113/56; PULSE 76; RESP 18
== END 2018-02-07 12:20 | disposition home or self-care (01) ==
LOC: C.ENDO 09:04
PROVIDERS: ATTEND Specialist
DX: D12.2 Benign neoplasm of ascending colon (principal); D12.4 Benign neoplasm of descending colon; K58.9 Irritable bowel syndrome, unspecified; K63.89 Other specified diseases of intestine; K64.8 Other hemorrhoids; K64.4 Residual hemorrhoidal skin tags; Z86.010 Personal history of colon polyps
CPT/HCPCS: 45380; 82948; 88305; J2001; J2704; J7120

== ENCOUNTER 2018-04-06 08:35 | Outpatient (CLI) | payer OTHER | END 2018-04-06 08:36 | disposition home or self-care (01) | LOC: C.CARD 08:35 | DX: R06.02 Shortness of breath (principal); E11.9 Type 2 diabetes mellitus without complications; I10 Essential (primary) hypertension ==

== ENCOUNTER 2018-05-11 09:16 | Outpatient (CLI) | payer OTHER | END 2018-05-11 09:17 | disposition home or self-care (01) | LOC: C.CARD 09:16 | DX: R00.0 Tachycardia, unspecified (principal) ==